=== PATIENT | male | born 1980 | race African-American/Black ===

== ENCOUNTER 2018-06-15 17:15 | Emergency (ER) | payer OTHER ==
--- NOTE | 2018-06-15 17:30 | PDOC ---
Rapid Medical Evaluation Time Seen by Provider: 06/15/18 17:28 Medical Evaluation: 06/15/18 17:29 I have performed a brief in-person evaluation of this patient. The patient presents with a chief complaint of: possible STD exposure Pertinent physical exam findings: deferred I have ordered the following: RPR, HIV, GC, urine The patient will proceed to the ED for further evaluation. Discharge Disposition - Diagnosis Possible exposure to STD - Referrals - Patient Instructions - Post Discharge Activity
[2018-06-15] MEDS ORDERED: AZITHROMYCIN 250 MG TABLET PO ONE (17:31)
[2018-06-15 17:33] VITALS: BP 140/69; PULSE 82; TEMP 98.2; BMI 21.4
--- NOTE | 2018-06-15 18:15 | PDOC ---
History of Present Illness - General Chief Complaint: Itching Stated Complaint: EVAL Time Seen by Provider: 06/15/18 17:28 - History of Present Illness Initial Comments: 06/15/18 18:13 37-year-old male without comorbidities presents for evaluation of suspected sexually transmitted disease. He states he wants to be tested for everything. He states he had unprotected sex with 3 strange women unknown to him over the last 2 weeks and now is experiencing urinary frequency. As well as discomfort. Past History - Past Medical History Allergies/Adverse Reactions: Allergies Allergy/AdvReac Type Severity Reaction Status Date / Time No Known Allergies Allergy Verified 06/15/18 17:29 Home Medications: Ambulatory Orders NK [No Known Home Medication] 06/15/18 - Suicide/Smoking/Psychosocial Hx Smoking History: Current every day smoker Have you smoked in the past 12 months: Yes Number of Cigarettes Smoked Daily: 10 Information on smoking cessation initiated: Yes Hx Alcohol Use: No Drug/Substance Use Hx: No Review of Systems - Review of Systems : Yes: See HPI *Physical Exam - Vital Signs Last Vital Signs Temp Pulse Resp BP Pulse Ox 98.2 F 82 20 140/69 98 06/15/18 17:29 06/15/18 17:29 06/15/18 17:29 06/15/18 17:29 06/15/18 17:29 - Physical Exam Comments: 06/15/18 18:14 HEAD: NC/AT EYES: Conjuntiva clear Genital exam deferred MS: Full ROM in all joints without edema NEUROLOGIC: No gross sensory or motor deficits, NVID SKIN: Normal color and temperature no lesions or rashes Medical Decision Making - Medical Decision Making 06/15/18 18:15 We'll treat for GC and chlamydia, patient will await HIV test and RPR *DC/Admit/Observation/Transfer Diagnosis at time of Disposition: Possible exposure to STD - Discharge Dispostion Disposition: HOME Condition at time of disposition: Stable Decision to Admit order: No - Referrals Referrals: [facility] Providers [Provider Group] - Patient Instructions Printed Discharge Instructions: Chlamydia: The Silent STD, How to Detect and Treat STDs, Facts About Sexually Transmitted Infections Additional Instructions: Your HIV test was negative. Your gonorrhea and chlamydia as well as her syphilis tests are pending. Should your syphilis test be positive you require treatment. You were treated for gonorrhea and chlamydia the most common sexually transmitted diseases. Return to the emergency room for worsening symptoms and follow-up with the [facility] for further evaluation and treatment options. You should abstain from sex or use protection and be retested for HIV and 3 as well as 6 months - Post Discharge Activity
[2018-06-15] MEDS ORDERED: AZITHROMYCIN 500 MG TABLET ONE (18:16)
== END 2018-06-15 20:12 | disposition home or self-care (01) ==
LOC: JERFT 17:15
DX: Z20.2 Contact with and (suspected) exposure to infections with a predominantly sexual mode of transmission (principal)
CPT/HCPCS: 36415; 86593; 87389; 87491; 87591; 96372; 99281-25